=== PATIENT | female | born 1950 | race American Indian/Alaskan Native ===

== ENCOUNTER 2017-07-07 14:13 | Emergency (ER) | payer MEDICARE, OTHER ==
--- NOTE | 2017-07-07 15:04 | Cat Scan Report ---
FINAL REPORT EXAM: CT HEAD/BRAIN WO CON HISTORY: syncope TECHNIQUE: CT of the head was performed. No intravenous contrast was administered. PRIORS: None. FINDINGS: There is moderate cerebral atrophy. There is moderate ischemic change in the white matter. There is no evidence of intracranial hemorrhage. There is no edema, mass effect or midline shift. There are no abnormal extra-axial fluid collections. The ventricles are appropriate for brain volume. There is no skull fracture seen. The visualized aspects of the sinuses are clear. IMPRESSION: There is no acute intracranial abnormality identified.
--- NOTE | 2017-07-07 15:07 | Emergency Department Report ---
HPI - General Chief Complaint: Altered Mental Status Time Seen by Provider: 07/07/17 14:28 - HPI HPI: Room 22 The patient is a 66-year-old female presenting with a chief complaint of syncope. The patient was being transported from her dialysis center back home when she became unresponsive for approximately 10-15 minutes. 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) Hx Diabetes: Yes Additional medical history: hyperthyroidism - Surgical History Additional Surgical History: fistula to RUE - Family History Family history: no significant - Social History Smoking Status: Never Smoker Substance Use Type: None - Medications Home Medications: Home Medications Medication Instructions Recorded Confirmed Last Taken Type Cinacalcet [Sensipar] 30 mg PO QDAY 07/07/17 07/07/17 Unknown History Famotidine [Pepcid] 20 mg PO BID 07/07/17 07/07/17 Unknown History Ferric Citrate (Nf) [Auryxia (Nf)] 420 mg PO TID 07/07/17 07/07/17 Unknown History Losartan [Cozaar] 25 mg PO QDAY 07/07/17 07/07/17 Unknown History hydrALAZINE [Apresoline] 25 mg PO Q8HR 07/07/17 07/07/17 Unknown History ED Review of Systems ROS: Stated complaint: AMS/UNRESPONSIVE Other details as noted in HPI Constitutional: no symptoms reported Neurological: confusion Physical Exam - Physical Exam Vital Signs: Vital Signs 07/07/17 14:25 Temperature 98.9 F Pulse Rate 60 Respiratory 18 Rate Blood Pressure 178/105 O2 Sat by Pulse 93 Oximetry Physical Exam: GENERAL: The patient is well-developed well-nourished female lying on stretcher not appear to be in acute distress. [] HEENT: Normocephalic. Atraumatic. Extraocular motions are intact. Patient has moist mucous membranes. NECK: Supple. No meningitic signs are noted. Trachea midline CHEST/LUNGS: Clear to auscultation. There is no respiratory distress noted. HEART/CARDIOVASCULAR: Regular. There is no tachycardia. There is no gallop rub or murmur. ABDOMEN: Abdomen is soft, nontender. Patient has normal bowel sounds. There is no abdominal distention. SKIN: There is no rash. There is no edema. There is no diaphoresis. NEURO: The patient is awake and alert but only oriented to self. The patient is cooperative. The patient has some residual right-sided weakness from previous CVAs otherwise cranial nerves II through XII grossly intact. The patient has normal speech MUSCULOSKELETAL:here is no evidence of acute injury. ED Course Vital Signs 07/07/17 14:25 Temperature 98.9 F Pulse Rate 60 Respiratory 18 Rate Blood Pressure 178/105 O2 Sat by Pulse 93 Oximetry ED Medical Decision Making - Lab Data Result diagrams: 07/07/17 15:04 07/07/17 15:04 Laboratory Tests 07/07/17 07/07/17 07/07/17 15:04 15:04 15:04 WBC 5.6 RBC 4.43 Hgb 11.6 Hct 35.2 MCV 79 MCH 26 L MCHC 33 RDW 17.0 H Lymph % (Auto) 31.4 Rosebud % (Auto) 11.3 H Eos % (Auto) 1.7 Baso % (Auto) 0.5 Lymph # 1.8 Rosebud # 0.6 Eos # 0.1 Baso # 0.0 Seg Neutrophils % 55.1 Seg Neutrophils # 3.1 PT 13.2 INR 0.95 APTT 25.2 Sodium 140 Potassium 3.9 Chloride 98.2 Carbon Dioxide 29 Anion Gap 17 BUN 17 Creatinine 5.3 H Estimated GFR 10 BUN/Creatinine Ratio 3 Glucose 76 Calcium 8.7 Total Bilirubin 0.40 AST 10 ALT < 5 L Alkaline Phosphatase 482 H Total Creatine Kinase 60 CK-MB (CK-2) 1.5 CK-MB (CK-2) Rel Index 2.5 Troponin T 0.045 H Total Protein 6.3 Albumin 3.7 L Albumin/Globulin Ratio 1.4 Triglycerides 120 Cholesterol 273 H LDL Cholesterol Direct 214 H HDL Cholesterol 44 Cholesterol/HDL Ratio 6.20 TSH Free T4 07/07/17 15:04 WBC RBC Hgb Hct MCV MCH MCHC RDW Lymph % (Auto) Rosebud % (Auto) Eos % (Auto) Baso % (Auto) Lymph # Rosebud # Eos # Baso # Seg Neutrophils % Seg Neutrophils # PT INR APTT Sodium Potassium Chloride Carbon Dioxide Anion Gap BUN Creatinine Estimated GFR BUN/Creatinine Ratio Glucose Calcium Total Bilirubin AST ALT Alkaline Phosphatase Total Creatine Kinase CK-MB (CK-2) CK-MB (CK-2) Rel Index Troponin T Total Protein Albumin Albumin/Globulin Ratio Triglycerides Cholesterol LDL Cholesterol Direct HDL Cholesterol Cholesterol/HDL Ratio TSH 2.610 Free T4 1.28 - EKG Data -: EKG Interpreted by Me EKG shows normal: sinus rhythm Rate: normal - EKG Data When compared to previous EKG there are: previous EKG unavailable Interpretation: nonspecific ST-T wave chery (T-wave inversion in leads 1, aVL, V2 , V5, V6) - Radiology Data Radiology results: report reviewed (CT head), image reviewed (CT head) [facility] [address] [place] [address] Cat Scan Report Signed Patient: JESSICA SANTOS MR#: [id number] : 1950 Acct:[id number] Age/Sex: 66 / F ADM Date: 07/07/17 Loc: ED Attending Dr: Ordering Physician: JERO CAZARES MD Date of Service: 07/07/17 Procedure(s): CT head/brain wo con Accession Number(s): [id number] cc: JERO CAZARES MD FINAL REPORT EXAM: CT HEAD/BRAIN WO CON HISTORY: syncope TECHNIQUE: CT of the head was performed. No intravenous contrast was administered. PRIORS: None. FINDINGS: There is moderate cerebral atrophy. There is moderate ischemic change in the white matter. There is no evidence of intracranial hemorrhage. There is no edema, mass effect or midline shift. There are no abnormal extra-axial fluid collections. The ventricles are appropriate for brain volume. There is no skull fracture seen. The visualized aspects of the sinuses are clear. IMPRESSION: There is no acute intracranial abnormality identified. Transcribed By: OSIEL Dictated By: BECKY SNIDER MD Electronically Authenticated By: BECKY SNIDER MD Signed Date/Time: 07/07/171458 DD/ 58 TD/TT: 07/07/171458 - Differential Diagnosis syncope Critical care attestation.: If time is entered above; I have spent that time in minutes in the direct care of this critically ill patient, excluding procedure time. ED Disposition Clinical Impression: Syncope, T wave inversion in EKG, End stage renal disease Disposition: OP ADMIT IP TO THIS HOSP Is pt being admited?: Yes Does the pt Need Aspirin: Yes Condition: Fair Instructions: Syncope (ED) Referrals: PRIMARY CARE,MD [Primary Care Provider] - 3-5 Days Time of Disposition: 16:18 (hospitalist paged (Dr Hamilton))
[2017-07-07 15:35] LABS: Creatine Kinase MB 1.5 ng/mL (0.0-4.0)
[2017-07-07 15:38] LABS: Albumin 3.7 g/dL (3.9-5); BUN/Creatinine Ratio 3; Blood Urea Nitrogen 17 mg/dL (7-17); Calcium 8.7 mg/dL (8.4-10.2); Hemolysis Index 46
[2017-07-07 15:46] LABS: Alanine Aminotransferase < 5 units/L (7-56); Free T4 (Free Thyroxine) 1.28 ng/dL (0.76-1.46)
[2017-07-07 15:49] LABS: HDL Cholesterol 44 mg/dL (40-59); LDL Cholesterol,Direct 214 mg/dL (50-130)
[2017-07-07 15:55] LABS: INR 0.95 (0.87-1.13); Partial Thromboplastin Time 25.2 Sec. (24.2-36.6)
[2017-07-07 16:04] LABS: Basophils % (Auto) 0.5 % (0.0-1.8); Eosinophils # (Auto) 0.1 K/mm3 (0.0-0.4); Eosinophils % (Auto) 1.7 % (0.0-4.3); Hematocrit 35.2 % (30.3-42.9); Hemoglobin 11.6 gm/dl (10.1-14.3); Lymphocytes # (Auto) 1.8 K/mm3 (1.2-5.4); Lymphocytes % (Auto) 31.4 % (13.4-35.0); Mean Corpuscular HGB Conc 33 % (30-34); Mean Corpuscular Hemoglobin 26 pg (28-32); Mean Corpuscular Volume 79 fl (79-97); Monocytes # (Auto) 0.6 K/mm3 (0.0-0.8); Monocytes % (Auto) 11.3 % (0.0-7.3); Red Blood Count 4.43 M/mm3 (3.65-5.03)
[2017-07-07 16:06] LABS: Platelet Count 144 K/mm3 (140-440)
[2017-07-07] MEDS ORDERED: ASPIRIN PO ONE (16:19)
--- NOTE | 2017-07-07 17:39 | Event Note ---
Date: 07/07/17 Evaluated for Syncope Patient diagnosed with Severe Aortic stenosis Had complete work up in [place] and was discharged yesterday Patient on HD for ESRD Cardiology f/u was arranged by Saúl O/E Severe Ejection systolic murmur in Aortic area Patient needs Aortic valve replacement Appointment with [facility] made [phone] for f/u
[2017-07-07 17:44] VITALS: BP 150/84
== END 2017-07-07 17:49 | disposition admitted as inpatient to this hospital (09) ==
LOC: ED 14:13
DX: R55 Syncope and collapse (principal); I12.0 Hypertensive chronic kidney disease with stage 5 chronic kidney disease or end stage renal disease; E11.22 Type 2 diabetes mellitus with diabetic chronic kidney disease; N18.6 End stage renal disease; E05.90 Thyrotoxicosis, unspecified without thyrotoxic crisis or storm; Z99.2 Dependence on renal dialysis; Z86.73 Personal history of transient ischemic attack (TIA), and cerebral infarction without residual deficits
CPT/HCPCS: 36415; 70450; 80053; 80061; 82550; 82553; 84439; 84443; 84484; 85025; 85610; 85730; 93005; 93010; 99284

== ENCOUNTER 2017-07-12 06:41 | Day surgery (SDC) | payer MEDICARE, OTHER ==
[2017-07-12] MEDS ORDERED: ECOTRIN PO NR (07:22)
[2017-07-12 07:59] LABS: Basophils % (Auto) 0.3 % (0.0-1.8); Eosinophils # (Auto) 0.1 K/mm3 (0.0-0.4); Eosinophils % (Auto) 1.4 % (0.0-4.3); Hematocrit 31.8 % (30.3-42.9); Hemoglobin 10.2 gm/dl (10.1-14.3); Lymphocytes # (Auto) 1.4 K/mm3 (1.2-5.4); Lymphocytes % (Auto) 24.9 % (13.4-35.0); Mean Corpuscular HGB Conc 32 % (30-34); Mean Corpuscular Hemoglobin 26 pg (28-32); Mean Corpuscular Volume 82 fl (79-97); Monocytes # (Auto) 0.5 K/mm3 (0.0-0.8); Monocytes % (Auto) 9.3 % (0.0-7.3); Platelet Count 165 K/mm3 (140-440); Red Cell Distribution Width 17.2 % (13.2-15.2)
[2017-07-12] MEDS ORDERED: NACL 0.9% 500 ML 500 ML IV SCH (08:00)
[2017-07-12 08:22] LABS: Calcium 8.9 mg/dL (8.4-10.2)
[2017-07-12] MEDS ORDERED: HEPARIN/NS 5000 UNIT/500ML(CATH LAB) 1,000 ML IR ONE (08:26)
[2017-07-12] MEDS ORDERED: HEPARIN 10,000 UNITS/10 ML ONE (08:26)
[2017-07-12] MEDS ORDERED: CALAN ONE (08:26)
[2017-07-12 08:27] LABS: INR 0.92 (0.87-1.13)
[2017-07-12] MEDS ORDERED: NITROGLYCERIN SYRINGE 0 ML ONE (08:27)
[2017-07-12] MEDS ORDERED: XYLOCAINE 2% INFILTRATI ONE (08:27)
[2017-07-12] MEDS ORDERED: VERSED ONE (08:27)
[2017-07-12] MEDS ORDERED: SUBLIMAZE ONE (08:27)
[2017-07-12] MEDS ORDERED: APRESOLINE ONE (10:40)
[2017-07-12] MEDS ORDERED: CATAPRES PO PRN (10:59)
--- NOTE | 2017-07-12 10:59 | Short Stay Summary ---
Short Stay Documentation Date of service: 07/12/17 - History H&P: obtained from office - Allergies and Medications Current Medications: Allergies No Known Allergies Allergy (Verified 07/07/17 17:22) Home Medications Medication Instructions Recorded Confirmed Last Taken Type Cinacalcet [Sensipar] 30 mg PO QDAY 07/07/17 07/12/17 07/11/17 History Famotidine [Pepcid] 20 mg PO BID 07/07/17 07/12/17 07/11/17 History Ferric Citrate (Nf) [Auryxia (Nf)] 420 mg PO TID 07/07/17 07/12/17 07/11/17 History Losartan [Cozaar] 25 mg PO QDAY 07/07/17 07/12/17 07/12/17 History hydrALAZINE [Apresoline] 25 mg PO Q8HR 07/07/17 07/12/17 07/12/17 History Active Medications Aspirin (Ecotrin) 325 mg PO ONCE NR Stop: 07/12/17 12:00 Last Admin: 07/12/17 08:34 Dose: 325 mg Sodium Chloride (Nacl 0.9% 500 Ml) 500 mls @ 50 mls/hr IV DIRECT HEATH Stop: 07/12/17 17:59 - Physical exam General appearance: no acute distress Integumentary: no rash HEENT: Atraumatic Lungs: Clear to auscultation Breasts: deferred Heart: Regular rate Gastrointestinal: normal Female Genitourinary: deferred Rectal Exam: deferred Extremities: no ischemia Neurological: Normal gait - Brief post op/procedure progress note Date of procedure: 07/12/17 Pre-op diagnosis: Aortic stenosis Post-op diagnosis: same Procedure: LHC/RHC, LV gram and aortogram Anesthesia: MAC Findings: See report Surgeon: TRISTEN RAO Estimated blood loss: none Pathology: none Condition: stable - Hospital course Hospital course: Uneventful - Disposition Condition at discharge: Good Disposition: DC-01 TO HOME OR SELFCARE Short Stay Discharge Plan Activity: no driving until cleared by PCP (for 2 days) Weight Bearing Status: Non-Weight Bearing (for 2 days) Diet: renal Follow up with: KENNEDY ALEXIS MD [Primary Care Provider] - 7 Days Prescriptions: Aspirin [Aspir-Low] 81 mg PO DAILY #60 tablet. Atorvastatin Calcium [Lipitor] 40 mg PO DAILY #30 tablet Carvedilol [Coreg] 6.25 mg PO DAILY #60 tablet
--- NOTE | 2017-07-12 13:13 | Cardiac Catherization Report ---
ORDERING PHYSICIAN: So Mishra MD INDICATION FOR PROCEDURE: Syncope, severe aortic stenosis. PROCEDURES PERFORMED: 1. Selective left and right coronary angiography. 2. Left ventriculography. 3. Ascending aortography. 4. Right heart catheterizations with hemodynamic measurement and oxygen saturation run. DESCRIPTION OF PROCEDURE: 1. After obtaining written consent, the patient was draped using sterile technique. 2. A 2% lidocaine was injected into the right groin. 3. A 5-Slovenian vascular sheath was inserted into the right common femoral artery. 4. An 8-Slovenian vascular sheath was inserted into the right common femoral vein. 5. Both vascular sheath were inserted using micropuncture technique. 6. A 7-Slovenian [place]-Eleni catheter was used to measure right-sided hemodynamics and perform an oxygen saturation run. 7. A 5-Slovenian JL4 catheter was used to selectively engage left coronary artery. 8. A 5-Slovenian JR4 catheter was used to selectively engage the right coronary artery. 9. The 5-Slovenian sheath was exchanged later to a 6-Slovenian vascular sheath through the common femoral artery. 10. A 6-Slovenian Gavin catheter was used to measure the gradient across the left ventricular outflow tract. The aortic valve was crossed using a straight tip wire with no difficulties. 11. A [place] pigtail was used to perform a hand injected LV gram. 12. A Gavin pigtail was used to perform an ascending aortogram. 13. No complications occurred during the procedure. 14. Hemostasis was achieved at the end of the procedure using a 6-Slovenian Angio-Seal device. SPECIMEN REMOVED: None. ESTIMATED BLOOD LOSS: Minimal. Sedation administered was 1 mg of IV Versed and 25 mcg of IV fentanyl. Physician and the patient [id number] sedation start time is 10:04 a.m. Physician and the patient sedation [id number]-[id number] stop time is 10:46 a.m. Total sedation time is 42 minutes. FINDINGS: HEMODYNAMICS: 1. The aortic pressure was 189/87. 2. The mean pulmonary capillary wedge pressure was 30 mmHg. 3. The mean pulmonary artery pressure was 50 mmHg. 4. The pulmonary artery systolic pressure was 70 mmHg. 5. The pulmonary artery diastolic pressure 36 mmHg. 6. The right ventricular systolic pressure is 70 mmHg. The right ventricular end-diastolic pressure is 18 mmHg. 7. The mean right arterial pressure is 60 mmHg. 8. The left ventricular systolic pressure was 219 mmHg. The left ventricular end-diastolic pressure was 29 mmHg. 9. The mean gradient across the aortic valve was 46.3 mmHg. The mrel-ed-exck gradient is 35 mmHg. The instantaneous peak gradient was 89 mmHg. The area of the aortic valve measured by the Gorlin equation was 1.53 cm2. 10. The Zenon cardiac output is 9.2 liters per minute. 11. The Zenon cardiac index is 4.79 liters per minute per meter squared. 12. The aortic saturation was 97%. 13. Right atrial saturation 77%. 14. Pulmonary artery saturation is 70%. 15. Right ventricular saturation is 72%. 16. Measurements were done on 2 liter nasal cannula. CARDIAC STRUCTURES: 1. The left ventricle is normal in size. The left ventricular function is hyperdynamic. The left ventricular ejection fraction is estimated between 60% and 70%. 2. The aortic valve is calcified. Mitral valve is calcified. There is evidence of 1+ mitral regurgitation. 3. There is no evidence of aortic regurgitation. CORONARY ANATOMY: 1. This is a right dominant circulation. 2. The left main is a short, angiographically normal. 3. The LAD is angiographically normal. 4. The left circumflex artery is angiographically normal. 5. The right coronary artery has mild luminal irregularities. There is a focal 90% stenosis noted in the mid to distal segment of the posterolateral ventricular branch right at a branching point. This vessel is 2-2.5 mm in diameter. IMPRESSION: 1. Severely elevated left and right-sided filling pressures. 2. Severe pulmonary hypertension with a transpulmonary gradient of 20 mmHg and a pulmonary vascular resistance of 2.17 Weston units. Findings are consistent with pulmonary hypertension secondary to left-sided diastolic heart failure. 3. There is no evidence of intracardiac shunt. 4. Elevated cardiac output consistent with a hyperdynamic LV as well as a history of AV fistula. 5. The mean gradient across the aortic valve is 46.3 mmHg. 6. The vwsl-ji-uugq gradient is 35 mmHg and instantaneous peak gradient is 89 mmHg. The aortic valve area is calculated at 1.53 cm2 with an aortic valve area index of 0.80 cm2 per meter squared. 7. Focal stenosis of the mid posterolateral ventricular branch with approximately 90% luminal reduction. This is a small caliber vessel measuring 2-2.5 mm in diameter. Otherwise, angiographically normal coronary circulation. 8. Hyperdynamic left ventricle with an ejection fraction estimated between 60% and 70%. 9. No evidence of aortic regurgitation. There is, however, evidence of mild mitral regurgitation. RECOMMENDATIONS: 1. Correlation with A 2D echo is highly recommended to further evaluate the aortic valve pathology. The straight tip wire did cross without difficulty through the aortic valve. The aortic valve mean gradient is elevated at 46.3 mmHg, yet the area was calculated at 1.53 cm2. 2. The Zenon cardiac output was also elevated due to a hyperdynamic LV and a history of AV fistula with left to right shunt. 3. If the patient is deemed not to have severe aortic stenosis, future consideration for PCI to the PLVB may be considered if she is symptomatic despite being on optimal medical therapy for coronary artery disease. The patient will be started on aspirin 81 mg, Lipitor 40 mg, and Coreg 6.25 mg p.o. b.i.d. prior to discharge. [facility]# [id number] IHSAN/GONZÁLEZ
[2017-07-12 13:50] VITALS: BP 164/91
== END 2017-07-12 13:30 | disposition home or self-care (01) ==
LOC: CATHLABREC 06:41
PROVIDERS: ATTEND Internal Medicine Cardiovascular Disease
DX: I35.0 Nonrheumatic aortic (valve) stenosis (principal); I27.20 Pulmonary hypertension, unspecified; I12.0 Hypertensive chronic kidney disease with stage 5 chronic kidney disease or end stage renal disease; E11.22 Type 2 diabetes mellitus with diabetic chronic kidney disease; N18.6 End stage renal disease; F03.90 Unspecified dementia, unspecified severity, without behavioral disturbance, psychotic disturbance, mood disturbance, and anxiety; Z99.2 Dependence on renal dialysis; Z79.82 Long term (current) use of aspirin; Z86.73 Personal history of transient ischemic attack (TIA), and cerebral infarction without residual deficits
CPT/HCPCS: 36415; 80048; 85025; 85610; 85730; 93005; 93010; 93460; 93567; C1751; C1894; J0360; J1644; J2250; J3010; J7040; Q9967

== ENCOUNTER 2017-10-15 14:17 | Emergency (ER) | payer MEDICARE ==
--- NOTE | 2017-10-15 18:23 | Emergency Department Report ---
Blank Doc - Documentation Documentation: 67-year-old female with a past medical history dementia, CVA with residual right-sided deficits, diabetes, GERD, hypertension, hypothyroidism, and end- stage renal disease on dialysis Wednesday, Wednesday, and Wednesday presents to the Hospital complaints of abdominal pain and constipation as well as an episode during dialysis. 2 is the end of her dialysis patient apparently became less responsive to have low blood pressure. Pending mental status improved with elevation in blood pressure. After dialysis patient complained of mid abdominal pain and was tearful. She has not had a bowel movement in several days but cannot remember the last bowel movement. She received a laxative yesterday without improvement. Several days ago patient did have some nausea and vomiting that has since resolved. No fever reported. EKG, CBC, CMP, cardiac enzymes, inr ct abd/pelvis noncontrast ordered. Heel Seat Filler: Dr. Mckee.
[2017-10-15 18:49] LABS: Basophils % (Auto) 0.5 % (0.0-1.8); Eosinophils % (Auto) 0.5 % (0.0-4.3); Hematocrit 35.6 % (30.3-42.9); Hemoglobin 11.3 gm/dl (10.1-14.3); Lymphocytes # (Auto) 1.1 K/mm3 (1.2-5.4); Lymphocytes % (Auto) 16.3 % (13.4-35.0); Mean Corpuscular HGB Conc 32 % (30-34); Mean Corpuscular Hemoglobin 28 pg (28-32); Mean Corpuscular Volume 88 fl (79-97); Monocytes # (Auto) 0.5 K/mm3 (0.0-0.8); Monocytes % (Auto) 8.1 % (0.0-7.3); Platelet Count 167 K/mm3 (140-440); Red Blood Count 4.07 M/mm3 (3.65-5.03)
[2017-10-15 18:58] LABS: INR 0.91 (0.87-1.13)
[2017-10-15 19:07] LABS: Creatine Kinase MB 1.5 ng/mL (0.0-4.0)
[2017-10-15 19:11] LABS: Albumin 4.1 g/dL (3.9-5); Blood Urea Nitrogen 22 mg/dL (7-17); Calcium 9.1 mg/dL (8.4-10.2); Hemolysis Index 4
[2017-10-15 19:18] LABS: Alanine Aminotransferase < 5 units/L (7-56)
--- NOTE | 2017-10-15 22:04 | Cat Scan Report ---
FINAL REPORT PROCEDURE: CT ABDOMEN PELVIS WO CON TECHNIQUE: Computerized axial tomography of the abdomen and pelvis was performed without intravenous contrast. This study is performed without intravascular contrast material and its sensitivity for abdominal and pelvic pathology, including neoplasms, inflammation, abscess, free fluid, thrombosis, arterial dissection and infarction, is reduced compared with a contrast enhanced study. HISTORY: abd pain, decreased bowel movements COMPARISON: No prior studies are available for comparison. FINDINGS: Mild to moderate cardiomegaly is noted. Liver and spleen demonstrate diffusely increased density. Small calcified nodular densities are noted in liver and spleen most likely representing calcified old granulomas. And right adrenal are within normal limits. Left adrenal demonstrates a hypodense lesion measuring. There is atrophy of bilateral kidneys. 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 Small cystic lesions are noted in bilateral kidneys largest measuring 1.1 centimeters located in the midportion right kidney. There is no obstructive uropathy. Urinary bladder is minimally filled. Aorta is of normal caliber. There is no free fluid or free air. Gallbladder is unremarkable. Small bowel loops are within normal limits. Moderate amount of residual stool is noted in the rectum and colon. Rectal abreu are diffusely thickened. Appendix is not distinctly visualized. There are no inflammatory changes in the right lower quadrant. Uterus demonstrates a irregular calcifications largest measuring 1.6 centimeters in diameter. Bones are diffusely sclerotic. Vertebral height is normal. IMPRESSION: Moderate degree residual stool in the rectum and colon with thickened rectal abreu most likely represent constipation. Bilateral kidneys are atrophied consistent with chronic renal failure. Increased density of bones is consistent with renal osteodystrophy. Moderate cardiomegaly Liver and spleen demonstrate increased density most likely representing hemochromatosis. Calcifications in the uterus most likely represent calcified fibroids. .
[2017-10-15 22:53] LABS: BUN/Creatinine Ratio 4; Chol/HDL Ratio 4.16 %; HDL Cholesterol 43 mg/dL (40-59); LDL Cholesterol,Direct 130 mg/dL (50-130)
--- NOTE | 2017-10-15 23:34 | Emergency Department Report ---
ED General Adult HPI - General Chief complaint: Pain General Stated complaint: PAIN EVERYWHERE Time Seen by Provider: 10/15/17 18:11 Source: patient Mode of arrival: Wheelchair Limitations: No Limitations - History of Present Illness Initial comments: End-stage renal disease patient and his dialysis today has been having intermittent abdominal pain for several days family thinks she may be constipated, no blood in stool no hematemesis here for evaluation of intermittent diffuse abdominal pain with decreased bowel movements. On previous admissions she has had elevated troponin patient is not having any chest pain today. She has been in the middle of getting worked up for valvular heart disease in the family says that it is stable for now she is here for evaluation of diffuse abdominal pain she is refusing a urine test is not having dysuria or frequency -: Gradual, days(s), unknown Location: abdomen Radiation: non-radiation, abdomen Quality: burning, aching, crushing, sharp, dull Improves with: none Worsens with: none Associated Symptoms: denies other symptoms, fever/chills, other (constipation). denies: confusion, chest pain, cough, diaphoresis, headaches, loss of appetite , malaise, nausea/vomiting, rash, seizure, shortness of breath, syncope, weakness - Related Data Home Medications Medication Instructions Recorded Confirmed Last Taken Cinacalcet [Sensipar] 30 mg PO QDAY 07/07/17 08/25/17 07/11/17 Famotidine [Pepcid] 20 mg PO BID 07/07/17 08/25/17 07/11/17 Ferric Citrate (Nf) [Auryxia (Nf)] 420 mg PO TID 07/07/17 08/25/17 07/11/17 Losartan [Cozaar] 25 mg PO QDAY 07/07/17 08/25/17 07/12/17 hydrALAZINE [Apresoline TAB] 25 mg PO Q8HR 07/07/17 08/25/17 07/12/17 Previous Rx's Medication Instructions Recorded Last Taken Type Aspirin [Aspir-Low] 81 mg PO DAILY #60 tablet. 07/12/17 Unknown Rx Atorvastatin Calcium [Lipitor] 40 mg PO DAILY #30 tablet 07/12/17 Unknown Rx Carvedilol [Coreg] 6.25 mg PO DAILY #60 tablet 07/12/17 Unknown Rx Docusate Sodium [Colace Clear] 50 mg PO BID PRN #30 capsule 10/15/17 Unknown Rx Mineral Oil [Fleet Mineral Oil] 133 ml [place] DAILY PRN #2 bottle 10/15/17 Unknown Rx Sennosides [Senna Laxative] 8.6 mg PO Q12H PRN #10 tab 10/15/17 Unknown Rx Allergies Allergy/AdvReac Type Severity Reaction Status Date / Time No Known Allergies Allergy Verified 07/07/17 17:22 ED Review of Systems ROS: Stated complaint: PAIN EVERYWHERE Other details as noted in HPI Comment: All other systems reviewed and negative Constitutional: denies: diaphoresis, fever, malaise Eyes: denies: eye discharge, vision change ENT: denies: dental pain, hearing loss, epistaxis Respiratory: denies: shortness of breath, SOB with exertion, SOB at rest, stridor Cardiovascular: denies: chest pain, palpitations, dyspnea on exertion, orthopnea , edema, syncope, paroxysmal nocturnal dyspnea Gastrointestinal: abdominal pain. 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 Dialysis - Surgical History Additional Surgical History: fistula to LUE - Social History Smoking Status: Never Smoker Substance Use Type: None - Medications Home Medications: Home Medications Medication Instructions Recorded Confirmed Last Taken Type Cinacalcet [Sensipar] 30 mg PO QDAY 07/07/17 08/25/17 07/11/17 History Famotidine [Pepcid] 20 mg PO BID 07/07/17 08/25/17 07/11/17 History Ferric Citrate (Nf) [Auryxia (Nf)] 420 mg PO TID 07/07/17 08/25/17 07/11/17 History Losartan [Cozaar] 25 mg PO QDAY 07/07/17 08/25/17 07/12/17 History hydrALAZINE [Apresoline TAB] 25 mg PO Q8HR 07/07/17 08/25/17 07/12/17 History Aspirin [Aspir-Low] 81 mg PO DAILY #60 tablet. 07/12/17 08/25/17 Unknown Rx Atorvastatin Calcium [Lipitor] 40 mg PO DAILY #30 tablet 07/12/17 08/25/17 Unknown Rx Carvedilol [Coreg] 6.25 mg PO DAILY #60 tablet 07/12/17 08/25/17 Unknown Rx Docusate Sodium [Colace Clear] 50 mg PO BID PRN #30 capsule 10/15/17 Unknown Rx Mineral Oil [Fleet Mineral Oil] 133 ml [place] DAILY PRN #2 bottle 10/15/17 Unknown Rx Sennosides [Senna Laxative] 8.6 mg PO Q12H PRN #10 tab 10/15/17 Unknown Rx ED Physical Exam - General Limitations: No Limitations General appearance: alert, in no apparent distress, anxious, other (nontoxic) - Head Head exam: Present: atraumatic, normocephalic - Eye Eye exam: Present: PERRL, EOMI - ENT ENT exam: Present: normal exam, normal orophraynx - Neck Neck exam: Present: normal inspection. Absent: tenderness, meningismus - Respiratory Respiratory exam: Present: normal lung sounds bilaterally. Absent: respiratory distress, wheezes, rales, rhonchi, stridor, chest wall tenderness, accessory muscle use, decreased breath sounds, prolonged expiratory - Cardiovascular Cardiovascular Exam: Present: regular rate, normal rhythm, normal heart sounds - GI/Abdominal GI/Abdominal exam: Present: soft. Absent: distended, tenderness, guarding, rebound, rigid, mass, pulsatile mass - Back Exam Back exam: Present: normal inspection. Absent: CVA tenderness (L), muscle spasm , paraspinal tenderness, vertebral tenderness, rash noted - Neurological Exam Neurological exam: Present: alert, oriented X3, CN II-XII intact. Absent: motor sensory deficit - Skin Skin exam: Absent: cyanosis, diaphoretic, erythema, urticaria, vesicles, petechiae, pallor, abrasion, ecchymosis ED Course Vital Signs 10/15/17 10/15/17 10/15/17 14:24 23:51 23:58 Temperature 97.7 F 99.4 F Pulse Rate 60 82 82 Respiratory 18 16 Rate Blood Pressure 165/72 216/92 Blood Pressure 216/92 [Right] O2 Sat by Pulse 97 98 Oximetry ED Medical Decision Making - Lab Data Result diagrams: 10/15/17 18:34 10/15/17 18:34 - EKG Data -: EKG Interpreted by Me - EKG Data When compared to previous EKG there are: no significant change Interpretation: other (EKG is unchanged from previous ischemic changes appreciated EH with chronic changes but no no acute ischemic changes) - Radiology Data Radiology results: report reviewed - Medical Decision Making CT was read as hemochromatosis, likely constipation and, changes consistent with chronic renal disease patient has no acute abdomen at this time we will start her on Laxative that she is to see her regular doctor and will be referred to GI is tolerating by mouth stable vital signs the troponin is slightly elevated but this was similarly elevated last month she did have a cardiac cath which did not show significant coronary disease several months ago and is no evidence of acute changes EKG that was STEMI at this time or N STEMI. She is here for stable for outpatient follow-up. She did have a cardiac catheterization several months ago that showed normal coronaries, no evidence of acute new alarming cardiopulmonary process will require admission or further testing at this time she is stable for outpatient follow-up Critical care attestation.: If time is entered above; I have spent that time in minutes in the direct care of this critically ill patient, excluding procedure time. ED Disposition Clinical Impression: Constipation Disposition: DC-01 TO HOME OR SELFCARE Is pt being admited?: No Condition: Stable Instructions: Constipation (ED), High Fiber Diet (ED) Additional Instructions: Return immediately if new alarming symptoms such as worse pain vomiting or other problems or call 911 Prescriptions: Docusate Sodium [Colace Clear] 50 mg PO BID PRN #30 capsule PRN Reason: Constipation Mineral Oil [Fleet Mineral Oil] 133 ml RI DAILY PRN #2 bottle PRN Reason: Constipation Sennosides [Senna Laxative] 8.6 mg PO Q12H PRN #10 tab PRN Reason: Constipation Referrals: PRIMARY CARE, [Primary Care Provider] - 3-5 Days Time of Disposition: 23:35
[2017-10-15 23:54] VITALS: BP 216/92
[2017-10-15] MEDS ORDERED: CATAPRES PO ONE (23:54)
== END 2017-10-16 00:03 | disposition home or self-care (01) ==
LOC: ED 14:17
DX: K59.00 Constipation, unspecified (principal); R10.9 Unspecified abdominal pain; I10 Essential (primary) hypertension; K21.9 Gastro-esophageal reflux disease without esophagitis; F03.90 Unspecified dementia, unspecified severity, without behavioral disturbance, psychotic disturbance, mood disturbance, and anxiety
CPT/HCPCS: 36415; 74176; 80053; 80061; 82550; 82553; 84484; 85025; 85610; 93005; 93010

== ENCOUNTER 2019-05-31 14:28 | Emergency (ER) | payer MEDICARE ==
--- NOTE | 2019-05-31 15:13 | Emergency Department Report ---
ED General Adult HPI - General Stated complaint: HEART RATE LOW Time Seen by Provider: 05/31/19 15:10 Source: patient, EMS, RN notes reviewed, old records reviewed Mode of arrival: Stretcher Limitations: Other - History of Present Illness Initial comments: PT IS A 68 YO AA FEMALE WHO COMES TO ER FROM HD CLINIC WITH BLEEDING AV FISTULA. IN AMBULANCE PT WAS NOTED TO BE BRADYCARDIC- BUT SHE IS ON COREG. NEEDLE REMAINS IN THE LUE AV FISTULA PER EMS REPORT THE HD RN COULD NOT GET THE FISTULA TO STOP BLEEDING SO SHE WAS SENT TO THE ER. HR SR 60 ON ADMIT NO CP NO SOB -: Sudden Improves with: none Worsens with: none Associated Symptoms: denies other symptoms Treatments Prior to Arrival: none - Related Data Home Medications Medication Instructions Recorded Confirmed Last Taken Cinacalcet [Sensipar] 30 mg PO QDAY 07/07/17 08/25/17 07/11/17 Famotidine [Pepcid] 20 mg PO BID 07/07/17 08/25/17 07/11/17 Ferric Citrate (Nf) [Auryxia] 420 mg PO TID 07/07/17 08/25/17 07/11/17 Losartan [Cozaar] 25 mg PO QDAY 07/07/17 08/25/17 07/12/17 hydrALAZINE [Apresoline TAB] 25 mg PO Q8HR 07/07/17 08/25/17 07/12/17 Previous Rx's Medication Instructions Recorded Last Taken Type Aspirin [Aspir-Low] 81 mg PO DAILY #60 tablet. 07/12/17 Unknown Rx Atorvastatin Calcium [Lipitor] 40 mg PO DAILY #30 tablet 07/12/17 Unknown Rx Carvedilol [Coreg] 6.25 mg PO DAILY #60 tablet 07/12/17 Unknown Rx Docusate Sodium [Colace Clear] 50 mg PO BID PRN #30 capsule 10/15/17 Unknown Rx Mineral Oil [Fleet Mineral Oil] 133 ml [place] DAILY PRN #2 bottle 10/15/17 Unknown Rx Sennosides [Senna Laxative] 8.6 mg PO Q12H PRN #10 tab 10/15/17 Unknown Rx Apixaban [Eliquis starter pack] 5 mg PO BID 30 Days tab.ds.pk 12/23/18 Unknown Rx Allergies Allergy/AdvReac Type Severity Reaction Status Date / Time No Known Allergies Allergy Verified 12/23/18 17:49 ED Review of Systems ROS: Stated complaint: HEART RATE LOW Other details as noted in HPI Comment: All other systems reviewed and negative ED Past Medical Hx - Past Medical History Previous Medical History?: Yes Hx Hypertension: Yes 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 Dialysis - Surgical History Past Surgical History?: Yes Additional Surgical History: fistula to LUE - Family History Family history: no significant - Social History Smoking Status: Never Smoker Substance Use Type: None - Medications Home Medications: Home Medications Medication Instructions Recorded Confirmed Last Taken Type Cinacalcet [Sensipar] 30 mg PO QDAY 07/07/17 08/25/17 07/11/17 History Famotidine [Pepcid] 20 mg PO BID 07/07/17 08/25/17 07/11/17 History Ferric Citrate (Nf) [Auryxia] 420 mg PO TID 07/07/17 08/25/17 07/11/17 History Losartan [Cozaar] 25 mg PO QDAY 07/07/17 08/25/17 07/12/17 History hydrALAZINE [Apresoline TAB] 25 mg PO Q8HR 07/07/17 08/25/17 07/12/17 History Aspirin [Aspir-Low] 81 mg PO DAILY #60 tablet. 07/12/17 08/25/17 Unknown Rx Atorvastatin Calcium [Lipitor] 40 mg PO DAILY #30 tablet 07/12/17 08/25/17 Unknown Rx Carvedilol [Coreg] 6.25 mg PO DAILY #60 tablet 07/12/17 08/25/17 Unknown Rx Docusate Sodium [Colace Clear] 50 mg PO BID PRN #30 capsule 10/15/17 Unknown Rx Mineral Oil [Fleet Mineral Oil] 133 ml [place] DAILY PRN #2 bottle 06/22/18 Unknown Rx Sennosides [Senna Laxative] 8.6 mg PO Q12H PRN #10 tab 10/15/17 Unknown Rx Apixaban [Eliquis starter pack] 5 mg PO BID 30 Days tab.ds.pk 12/23/18 Unknown Rx ED Physical Exam - General General appearance: alert, in no apparent distress - Head Head exam: Present: atraumatic, normocephalic - Eye Eye exam: Present: normal appearance - ENT ENT exam: Present: mucous membranes moist - Neck Neck exam: Present: normal inspection - Respiratory Respiratory exam: Present: normal lung sounds bilaterally. Absent: respiratory distress - Cardiovascular Cardiovascular Exam: Present: regular rate, normal rhythm. Absent: systolic murmur, diastolic murmur, rubs, gallop - GI/Abdominal GI/Abdominal exam: Present: soft, normal bowel sounds - Rectal Rectal exam: Present: deferred - Extremities Exam Extremities exam: Present: normal inspection - Back Exam Back exam: Present: normal inspection - Psychiatric Psychiatric exam: Present: flat affect - Skin Skin exam: Present: warm, dry, intact, normal color. Absent: rash ED Course Vital Signs 05/31/19 15:14 Temperature 97.5 F L Pulse Rate 66 Respiratory 18 Rate Blood Pressure 160/73 [Right] O2 Sat by Pulse 100 Oximetry - Reevaluation(s) Reevaluation #1: 05/31/19 17:48 THRILL AND BRUIT TO THE LUE AV FISTULA NO BLEEDING ED Medical Decision Making - Lab Data Result diagrams: 05/31/19 16:57 05/31/19 16:57 - EKG Data EKG shows normal: sinus rhythm Rate: normal - EKG Data When compared to previous EKG there are: no significant change - Medical Decision Making Lab Results 05/31/19 05/31/19 Range/Units 16:57 16:57 WBC 4.3 L (4.5-11.0) K/mm3 RBC 3.91 (3.65-5.03) M/mm3 Hgb 10.9 (10.1-14.3) gm/dl Hct 33.3 (30.3-42.9) % MCV 85 (79-97) fl MCH 28 (28-32) pg MCHC 33 (30-34) % RDW 18.8 H (13.2-15.2) % Plt Count 159 (140-440) K/mm3 Lymph % (Auto) 17.5 (13.4-35.0) % [place] % (Auto) 9.7 H (0.0-7.3) % Eos % (Auto) 0.8 (0.0-4.3) % Baso % (Auto) 0.3 (0.0-1.8) % Lymph # 0.8 L (1.2-5.4) K/mm3 [place] # 0.4 (0.0-0.8) K/mm3 Eos # 0.0 (0.0-0.4) K/mm3 Baso # 0.0 (0.0-0.1) K/mm3 Seg Neutrophils % 71.7 H (40.0-70.0) % Seg Neutrophils # 3.2 (1.8-7.7) K/mm3 PT 13.3 (12.2-14.9) Sec. INR 1.00 (0.87-1.13) APTT 26.1 (24.2-36.6) Sec. Vital Signs 05/31/19 15:14 Temperature 97.5 F L Pulse Rate 66 Respiratory 18 Rate Blood Pressure 160/73 [Right] O2 Sat by Pulse 100 Oximetry MANUAL POINT PRESSURE ON PROXIMAL AND DISTAL AV SHUNT ACCESS SITES- THE NEEDLE WAS DC FROM THE DISTAL SITE THROMBIN APPLIED AND THEN PRESSURE DRESSING AND ICE APPLIED THE ENTIRE TIME PT HERE SHE HAS BRUIT AND THRILL RADIAL AND ULNAR PULSES PLUS 2 RAPID CAP REFIL PT ON COREG AT HOME HR 50-70 NO CP NO SOB NO HYPOTENSION EKG SR 70'S PT HGB STABLE WILL DC HOME WITH FAMILY PT TO FOLLOW UP WITH NEPHROLOGY AND PCP IN AM- FOR REEVAL OF AV FISTULA AND HER HR/COREG - Differential Diagnosis bleeding AV fistula Critical care attestation.: If time is entered above; I have spent that time in minutes in the direct care of this critically ill patient, excluding procedure time. ED Disposition Clinical Impression: Hemorrhage of arteriovenous fistula, ESRD (end stage renal disease) on dialysis, Bradycardia, On beta rubi at home Disposition: DC-01 TO HOME OR SELFCARE Is pt being admited?: No Does the pt Need Aspirin: No Condition: Stable Additional Instructions: FOLLOW UP WITH NEPHROLOGY IN AM TO REEVALUATE YOUR FISTULA THERE IS A BRUIT AND THRILL ON DISCHARGE AND THERE IS NO BLEEDING CONTINUE HOME MEDS ACTIVITY AND DIET PER ROUTINE DISCUSS COREG WITH MD- MAKE SURE HEART RATE IS NOT GETTING TOO LOW- IT WAS FINE TODAY GIVEN YOU ARE ON COREG Referrals: PATRICE RENDON MD [Staff Physician] - 3-5 Days Time of Disposition: 15:31
[2019-05-31] MEDS ORDERED: THROMBIN (RECOMBINANT) 5,000 UNIT VIAL TP SCH (16:00)
[2019-05-31 17:21] LABS: Hematocrit 33.3 % (30.3-42.9); Hemoglobin 10.9 gm/dl (10.1-14.3); Mean Corpuscular HGB Conc 33 % (30-34); Mean Corpuscular Volume 85 fl (79-97); Platelet Count 159 K/mm3 (140-440); Red Blood Count 3.91 M/mm3 (3.65-5.03); Red Cell Distribution Width 18.8 % (13.2-15.2)
[2019-05-31 17:36] LABS: Basophils % (Auto) 0.3 % (0.0-1.8); Eosinophils % (Auto) 0.8 % (0.0-4.3); Lymphocytes # (Auto) 0.8 K/mm3 (1.2-5.4); Lymphocytes % (Auto) 17.5 % (13.4-35.0); Monocytes # (Auto) 0.4 K/mm3 (0.0-0.8); Monocytes % (Auto) 9.7 % (0.0-7.3); Partial Thromboplastin Time 26.1 Sec. (24.2-36.6)
[2019-05-31 17:43] LABS: BUN/Creatinine Ratio 3; Blood Urea Nitrogen 15 mg/dL (7-17); Calcium 8.8 mg/dL (8.4-10.2); Hemolysis Index 10
[2019-05-31 17:44] LABS: Alanine Aminotransferase < 5 units/L (7-56)
[2019-05-31 21:54] VITALS: BP 166/78
== END 2019-05-31 21:53 | disposition home or self-care (01) ==
LOC: ED 14:28
DX: T82.838A Hemorrhage due to vascular prosthetic devices, implants and grafts, initial encounter (principal); E13.22 Other specified diabetes mellitus with diabetic chronic kidney disease; I12.0 Hypertensive chronic kidney disease with stage 5 chronic kidney disease or end stage renal disease; N18.6 End stage renal disease; Z99.2 Dependence on renal dialysis; E05.00 Thyrotoxicosis with diffuse goiter without thyrotoxic crisis or storm; K21.9 Gastro-esophageal reflux disease without esophagitis; I25.2 Old myocardial infarction; Z79.899 Other long term (current) drug therapy; Y92.89 Other specified places as the place of occurrence of the external cause
CPT/HCPCS: 36415; 80053; 82962; 85025; 85610; 85730; 93005; 93010